=== PATIENT | male | born 1970 | race Caucasian/White ===

== ENCOUNTER 2024-02-28 06:39 | Day surgery (SDC) | payer OTHER ==
[~2024-02-28] VITALS: Ht 177.8 cm; Wt 99.3 kg
[~2024-02-28 06:39] MED LIST: AMLO2.5T3 PO; ERGO500029 PO; GLIP10TA6; LISI20TA35 PO; METF500T13 PO; ROSU5TAB40 PO; SEMA0.257 SC; SIMV20TA22; TADA10TA PO
[2024-02-28] MEDS ORDERED: propofoL 200 MG/20 ML VIAL As Ordered ONE (06:59)
[2024-02-28] MEDS ORDERED: LIDOCAINE 2% 100MG/5ML SDV (FOR ANES.) As Ordered ONE (07:04)
[2024-02-28] MEDS: NS 1,000 ML IV ONE (07:15)
[2024-02-28 07:51] VITALS: TEMP 97.4
[2024-02-28 08:06] VITALS: BP 120/61; O2SAT 99
== END 2024-02-28 08:20 | disposition home or self-care (01) ==
LOC: M OPP 06:39
PROVIDERS: ATTEND Internal Medicine Gastroenterology
DX: Z12.11 Encounter for screening for malignant neoplasm of colon (principal); D12.3 Benign neoplasm of transverse colon; K64.8 Other hemorrhoids; K57.30 Diverticulosis of large intestine without perforation or abscess without bleeding; E11.9 Type 2 diabetes mellitus without complications; Z79.02 Long term (current) use of antithrombotics/antiplatelets; Z79.84 Long term (current) use of oral hypoglycemic drugs; Z79.899 Other long term (current) drug therapy

== ENCOUNTER → 2025-01-30 | Outpatient (REF) | payer OTHER ==
[~2025-01-30] MED LIST changes: +GLIP10TA15; -GLIP10TA6; -ROSU5TAB40 PO; +ROSU5TAB49 PO
== END ==
LOC: M SFHCLERA 11:07
DX: Z53.9 Procedure and treatment not carried out, unspecified reason (principal)

== ENCOUNTER → 2025-03-07 | Outpatient (CLI) | payer OTHER | LOC: M RAD 10:41 | DX: M79.672 Pain in left foot (principal) ==